=== PATIENT | male | born 1975 | race Caucasian/White ===

== ENCOUNTER 2020-02-15 17:07 | Emergency (ER) | payer BC, SELFPAY ==
--- NOTE | ~2020-02-15 | CT_ITS ---
EXAMINATION: CTA chest PE protocol EXAM DATE: 02/15/2020 18:22 INDICATION: Acute onset dyspnea, left-sided chest pain. TECHNIQUE: Spiral CTA of the chest (pulmonary arteries) was performed with 100 cc Omnipaque 350 intr avenous contrast injection. Images were acquired during the pulmonary arterial phase. Coronal maxi mum intensity projection 3D-reconstructions were created by the technologist on dedicated workstation . Axial, coronal and sagittal reformatted images were reviewed. The dose-length product (DLP) for t his examination was 318.75 mGy-cm. The exposure was tailored according to patient size (auto mA exp osure control), and iterative reconstruction (ASIR) was used as additional dose reduction technique. Correlation is made to chest x-ray same date. FINDINGS: There are no pulmonary emboli in the 1st through 3rd order (central and interlobar) pulmon kishore arteries. Some loss of attenuation in the segmental pulmonary arteries due to respiratory motion , but no intraluminal filling defects suspected. No thoracic aortic dissection. Moderate amount of scattered tree-in-bud pattern reticular nodular airspace disease, pattern suggesti ng endobronchial spread of infectious process. Differential diagnosis includes aspiration, TB/KLAUS an d chronic air space processes such as hypersensitivity pneumonitis. There is right upper lobe bronc hiectasis, linear opacities radiating from the hilum to the periphery with volume loss, appearance is consistent with scarring from prior infectious process. There are no pleural or pericardial effusions. Tracheobronchial tree is patent. There is no media stinal, hilar or axillary lymphadenopathy. There is no pneumothorax. Heart normal in size. No e vidence of coronary arterial calcification. Upper abdomen is unremarkable. There is thoracic spond ylosis without osteoblastic or osteolytic lesions identified. IMPRESSION: 1. No pulmonary emboli. 2. Moderate amount of bilateral tree-in-bud pattern airspace disease. Differential considerations in clude TB/KLAUS, hypersensitivity pneumonitis. 3. Chronic right upper lobe scarring and bronchiectasis. Reviewed, dictated and finalized at location A. IMPRESSION: 1. No pulmonary emboli. 2. Moderate amount of bilateral tree-in-bud pattern airspace disease. Differen tial considerations include TB/KLAUS, hypersensitivity pneumonitis. 3. Chronic right upper lobe scarring and bronchiectasis.
--- NOTE | ~2020-02-15 | XR_ITS ---
EXAMINATION: XR chest 2V DATE: 02/15/2020 17:24 INDICATION: Left-sided chest pain TECHNIQUE: PA and lateral views of the chest are obtained. COMPARISON: 05/21/2018 FINDINGS: The lungs are free of acute opacities. Volume loss and chronic opacities of the right upper lobe are consistent with sequela of prior pneumonia. There is no pleural effusion or pneumothorax. T he cardiomediastinal silhouette is normal. There is mild thoracic spondylosis. IMPRESSION: 1. No acute cardiopulmonary abnormality. Reviewed, dictated and finalized at location A.
--- NOTE | 2020-02-15 17:08 | ECG_ITS ---
Measurements Intervals [place] Rate: 79 P: 73 TN: 164 QRS: 93 QRSD: 109 T: 32 QT: 371 QTc: 426 Interpretive Statements SINUS RHYTHM BORDERLINE ST-T WAVE ABNORMALITY- INFERIOR LEADS BORDERLINE ECG Electronically Signed On 02-15-2020 19:21:36 CDT by Chuy Trujillo D.O.
[2020-02-15 17:12] VITALS: BP 141/80; PULSE 98; RESP 24; TEMP 36.1; O2SAT 100
--- NOTE | 2020-02-15 17:18 | PC.NURSE ---
Patient to xray at this time
[2020-02-15 17:26] LABS: Basophils Absolute Auto 0.1 K/mm3 (0.0-0.1); Basophils Percent Auto 0.8 % (0.2-1.2); Eosinophils Absolute Auto 0.2 K/mm3 (0-0.3); Eosinophils Percent Auto 3.2 % (0-4.4); Immature Granulocyte Absolute 0.01 K/mm3 (0.00-0.031); Immature Granulocyte Percent A 0.1 % (0-0.5); Lymphocytes Absolute Auto 2.36 K/mm3 (0.9-3.2); Lymphocytes Percent Auto 33.1 % (18.3-44.2); Mean Corpuscular HGB Conc 32.6 g/dl (32-36); Mean Corpuscular Hemoglobin 29.9 pg (26-34); Mean Corpuscular Volume 91.8 fl (80-100); Mean Platelet Volume 10.2 fl (7.4-10.4); Monocytes Percent Auto 13.5 % (2.6-8.5); Neutrophils Absolute Auto 3.5 K/mm3 (1.3-6.7); Neutrophils Percent Auto 49.3 % (45.5-73.1); Platelet Count Result 238 k/mm3 (150-375); Red Blood Count 5.01 M/mm3 (4.6-6.20); Red Cell Distribution Width 12.9 % (11.5-14.5); White Blood Count 7.1 K/mm3 (4.5-10.0)
[2020-02-15 17:29] VITALS: O2SAT 100
--- NOTE | 2020-02-15 17:34 | ED.CHESTPAIN ---
HPI - Chest Pain General Chief Complaint: Chest Pain Stated Complaint: chest pain Time Seen by Provider: 02/15/20 17:34 Source: patient and family Mode of arrival: wheelchair Limitations: no limitations History of Present Illness HPI narrative: Patient is a 45-year-old male who presents for evaluation of acute onset left-sided sharp chest pain. Patient states he was driving home from work when he began to have a chest discomfort on the left side of his chest. Described as sharp, stabbing in nature. He has had some associated shortness of breath, mostly pain with inspiration or pain with moving. He denies any recent heavy lifting. Patient does have a history of sarcoidosis, has a history of right-sided pneumothorax, VATS procedure done at [facility] in 2019. Patient follows with the cad specialist at [facility]. Patient denies recent car or air travel. He is a non-smoker. No leg swelling or leg pain. Related Data Allergies Allergy/AdvReac Type Severity Reaction Status Date / Time No Known Allergies Allergy Verified 02/15/20 17:29 Review of Systems Review of Systems: Narrative: CONSTITUTIONAL: Denies fever, chills, or sweats. EYES: Denies visual changes, redness, or discharge. ENT: Denies rhinorrhea, congestion, sore throat, or otalgia. CARDIOVASCULAR: Reports left-sided chest pain, denies palpitations or edema RESPIRATORY: Denies cough, reports shortness of breath GASTROINTESTINAL: Denies abdominal pain, nausea, vomiting, or diarrhea. GENITOURINARY: Denies dysuria or hematuria. SKIN: Denies rash or itching. MUSCULOSKELETAL: Denies back pain, joint pain, or myalgia. NEUROLOGIC: Denies headache, numbness, or weakness. 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 EYES: PERRLA and EOMI. ENT: Nares clear, no rhinorrhea or epistaxis. Mucous membranes moist. NECK: Supple. CHEST: No respiratory distress, mild tachypnea, bilateral breath sounds present, pain with inspiration over the left chest, reproducible left lateral chest wall tenderness, tender along the midclavicular line to the mid axillary line at T9, T10, T11, T12 HEART: Regular rate, sinus rhythm ABDOMEN:Non distended, non tender EXTREMITIES: Normal range of motion. No edema. SKIN: Warm, dry, no rash. NEURO:No focal deficits. Alert and oriented x3 Course Vital Signs Vital signs: Vital Signs Temperature 36.1 C L 02/15/20 17:12 Pulse Rate 98 02/15/20 17:12 Respiratory Rate 24 H 02/15/20 17:12 Blood Pressure 141/80 H 02/15/20 17:12 Pulse Oximetry 100 02/15/20 17:12 Temperature 36.1 C L 02/15/20 17:12 Pulse Rate 70 02/15/20 20:55 Respiratory Rate 18 02/15/20 20:55 Blood Pressure 114/75 02/15/20 20:55 Pulse Oximetry 100 02/15/20 20:55 MDM - Chest Pain MDM Narrative Medical decision making narrative: Presenting for evaluation of acute onset left-sided chest wall pain. At the time of assessment, patient is hyperventilating, otherwise ABCs are intact and vital signs are stable. Pain is reproducible. Given this, I do not suspect anginal type symptoms. Given history of pneumothorax, do want to rule out any acute cardiopulmonary abnormalities, thus imaging obtained and is negative for PE. Patient does have air entry both appearance which can be consistent with sarcoidosis after speaking with radiologist. Clinically the patient does not have symptoms that are consistent for TB or KLAUS. Patient chest p
[2020-02-15 17:39] LABS: Anion Gap 12 mmol/L (8-16); Blood Urea Nitrogen 15 mg/dL (9-20); Calcium 10.4 mg/dL (8.4-10.2); Carbon Dioxide 29 mmol/L (22-30); Chloride 100 mmol/L (98-107); Estimated CRCL calculation 88 ml/min; Estimated Glomerular Filt Rate > 60; Glucose 134 mg/dL (75-110); Potassium 3.6 mmol/L (3.4-5.0); Sodium 141 mmol/L (137-145)
[2020-02-15] MEDS: MORPHINE SULFATE (*CRX) 4 MG/ML INJ IV PUSH (17:42)
[2020-02-15] MEDS: ASPIRIN 81 MG CHEWABLE TABLET 324 MG PO (17:42)
[2020-02-15] MEDS: SODIUM CHLORIDE 0.9% IV 1,000 ML 999 ML IV CONT (17:43)
[2020-02-15] MEDS: ONDANSETRON INJ 4 MG/2 ML VIAL IV PUSH (17:43)
[2020-02-15 17:51] LABS: Troponin I < 0.012 ng/mL (0.000-0.034)
[2020-02-15 17:55] LABS: Alveolar/Arterial O2 Gradient 2.8 mmHg; Base Excess ABG 2.1 mEq/l (+/-2.0); Carboxyhemoglobin 0.9 % THb (0-2.0); Fractional Inspired Oxygen 21 %; HCO3 ABG 19.2 mEq/l (22.0-26.0); Methemoglobin ABG 0.2 %THb (0-1.5); Oxygen Content ABG 20.5 %vol (16.0-22.0); Oxygen Saturation ABG 99.2 % (95.0-100.0); Oxyhemoglobin 97.7 % THb (90.0-100.0); PO2 ABG 127.2 mmHg (80.0-100.0); PO2 FiO2 Ratio Arterial Blood 6.06 %; Reduced Hemoglobin 1.2 %THb (0-5.0); Total Hemoglobin 14.8 g/dL (12.0-18.0)
[2020-02-15 17:56] LABS: pH ABG 7.684 (7.350-7.450)
[2020-02-15 17:57] LABS: Device ROOM AIR; Modified Allen's Test Pass; PCO2 ABG 16.5 mmHg (35.0-45.0); Site Drawn RIGHT RADIAL
[2020-02-15 18:15] LABS: Prothrombin Time 13.2 Seconds (11.1-14.7)
[2020-02-15 18:17] LABS: Partial Thromboplastin Time 34.8 SECONDS (22.3-36.8)
[2020-02-15 18:19] LABS: D Dimer 0.48 ug/mL (<0.48)
[2020-02-15 18:28] LABS: NT Pro B Type Natriuretic Pept 170 PG/ML (5-100)
[2020-02-15] MEDS: KETOROLAC 15 MG/ML VIAL (*BKC) IV PUSH (18:30)
[2020-02-15 18:59] VITALS: BP 112/74; PULSE 74; RESP 18; O2SAT 100
[2020-02-15 20:39] LABS: Troponin I < 0.012 ng/mL (0.000-0.034)
[2020-02-15 20:55] VITALS: BP 114/75; PULSE 70; RESP 18; O2SAT 100
[2020-02-15 21:40] VITALS: BP 120/74; PULSE 80; RESP 18; TEMP 36.7; O2SAT 99
== END 2020-02-15 21:41 | disposition home or self-care (01) ==
PROVIDERS: Emergency Medicine; Emergency Provider Emergency Medicine
DX: R07.89 Other chest pain (principal); M62.838 Other muscle spasm
CPT/HCPCS: 36415; 36600; 71046; 71275; 80048; 82375; 82805; 83050; 83880; 84484; 85025; 85380; 85610; 85730; 93005; 96361; 96365; 96375; 99284; A9270; J0131; J1885; J2270; J2405; J7030; Q9967

== ENCOUNTER 2020-12-09 10:11 | Emergency (ER) | payer BC, SELFPAY ==
[2020-12-09 10:21] VITALS: BP 111/72; PULSE 92; RESP 16; TEMP 36.1; O2SAT 100
--- NOTE | 2020-12-09 10:27 | ED.URI ---
HPI - URI/Sore Throat General Chief Complaint: Upper Respiratory Infection Stated Complaint: sinus infection History of Present Illness HPI Narrative: This is a 45 year old male that has been having symptoms since Friday patient was swabbed on for Covid patient is complaining of nasal drainage coughing sinus pressure pain. 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 EYES: Denies visual changes, redness, or discharge. ENT: Reports rhinorrhea, congestion, sore throat, or otalgia. CARDIOVASCULAR:Denies chest pain, palpitations, or edema. RESPIRATORY: Reports cough or dyspnea. GASTROINTESTINAL: Denies abdominal pain, nausea, vomiting, or diarrhea. GENITOURINARY: Denies dysuria or hematuria. SKIN:[Denies rash or itching. MUSCULOSKELETAL:Denies back pain, joint pain, or myalgia. NEUROLOGIC: Denies headache, numbness, or weakness. PSYCHIATRIC:Denies anxiety or depression PMFSH Past Medical History Medical History (Updated 12/09/20 @ 11:08 by Enrique Bloom NP) Pneumothorax Sarcoidosis Social History Social History (Updated 02/15/20 @ 17:38 by Gloria Cooper MD) Smoking status: Never smoker Alcohol intake: never Substance use: never Additional occupation/education comments: Principal Gender identity (if verbalized by the patient): Male Comments At time as signature, I have reviewed and agree with nursing past medical, social, surgical and family history. Please see nursing chart for further information. There is no relevant family history pertinent to the presenting complaint. Exam Narrative: GENERAL:Well-appearing, well-nourished, and in no acute distress. HEAD:Normocephalic, atraumatic. EYES: PERRLA ENT: Nares clear, mild clear rhinorrhea Mucous membranes moist. NECK: Supple. CHEST: Clear to auscultation. No respiratory distress. HEART: Regular rate and rhythm. ABDOMEN: Soft, nontender, nondistended EXTREMITIES: Normal range of motion. No edema. SKIN: Warm, dry, no rash. NEURO: No focal deficits. Alert and oriented x3. Course Course Emergency Course: Awaiting influenza and Covid test pending Vital Signs Vital signs: Vital Signs Temperature 97 F L 12/09/20 10:21 Pulse Rate 92 12/09/20 10:21 Respiratory Rate 16 12/09/20 10:21 Blood Pressure 111/72 12/09/20 10:21 Pulse Oximetry 100 12/09/20 10:21 Temperature 97 F L 12/09/20 10:21 Pulse Rate 92 12/09/20 10:21 Respiratory Rate 16 12/09/20 10:21 Blood Pressure 111/72 12/09/20 10:21 Pulse Oximetry 100 12/09/20 10:21 MDM - URI/Sore Throat MDM Narrative Medical decision making narrative: Negative covid test Negative Influenza test Differential Diagnosis Differential diagnosis: Likely upper respiratory infection, otitis media, sinusitis, viral infection, influenza and pharyngitis Lab Data Labs: Lab Results 12/09/20 Range/Units 10:46 POC SARS CoV-2 Ag Negative (Negative) Influenza A Screen Negative Reference Range: Negative Influenza B Screen Negative Reference Range: Negative Discharge Plan Discharge Clinical Impression: Viral infection Upper respiratory infection Qualifiers: URI type: unspecified URI Qualified Code(s): J06.9 - Acute upper respiratory infection, unspecified Patient Disposition: Home, Self-Care Condition: Stable Instructions: Antibiotic Form, Upper Respiratory Infection (ED), Viral Syndrome (ED) Additional Instructions: Viral illness may last between 7-12days; antibiotic is NOT recommend
[2020-12-11 17:31] LABS: SARS-CoV-2 RNA PCR Negative
== END 2020-12-09 11:16 | disposition home or self-care (01) ==
PROVIDERS: Emergency Provider Nurse Practitioner Family
DX: B34.9 Viral infection, unspecified (principal); J06.9 Acute upper respiratory infection, unspecified; Z20.822 Contact with and (suspected) exposure to COVID-19; D86.9 Sarcoidosis, unspecified
CPT/HCPCS: 87426; 87804; 99213; C9803; G0463; U0003; U0005

== ENCOUNTER → 2022-01-16 10:27 | Outpatient (CLI) | payer BC, OTHER, SELFPAY ==
--- NOTE | ~2022-01-16 | XR_ITS ---
EXAMINATION: XR ribs RT 2V w CXR 2V INDICATION: Localized swelling, mass, and lump of the chest TECHNIQUE: PA and lateral views of the chest and 3 views of the right ribs were obtained. COMPARISON: 02/15/2020 FINDINGS: There is chronic scarring in the right upper lobe. The lungs are free of acute opacities. N o pleural effusion or pneumothorax. There is mild thoracic spondylosis. The cardiomediastinal silhoue tte is normal. No displaced rib fracture is identified. IMPRESSION: 1. No acute cardiopulmonary abnormality or evidence of displaced rib fracture. Reviewed, dictated and finalized at location B.
== END ==
PROVIDERS: PCP Nurse Practitioner Family; Visit Provider Nurse Practitioner Family
DX: R22.2 Localized swelling, mass and lump, trunk (principal); D86.9 Sarcoidosis, unspecified
CPT/HCPCS: 71046; 71100

== ENCOUNTER 2024-09-23 12:34 | Outpatient (CLI) | payer BC, OTHER, SELFPAY ==
--- NOTE | ~2024-09-23 | US_ITS ---
EXAMINATION: US soft tissue head and neck DATE: 09/23/2024 12:48 INDICATION: Palpable area at the right neck near the angle of the mandible TECHNIQUE: Multiple grayscale and Doppler ultrasound images of the retromandibular region of concern were obtained. COMPARISON: None FINDINGS: There are multiple very hypoechoic lesions within the echogenic right parotid gland. These include a 1.7 x 0.7 x 1.5 cm very hypoechoic nodule which demonstrates a central echogenic region such as typic ally seen within the echogenic hilum of a lymph node. There are a few additional more homogeneously v nancy hypoechoic ovoid nodules in axillary is measuring 10 x 5 mm. IMPRESSION: 1. Several very hypoechoic lesions within the right parotid gland which could represent enlarged lymp h nodes or primary parotid neoplasms which could be either benign or malignant. Based on the appearan ce of one of the nodules would favor the former. The enlarged lymph nodes could be either reactive, m etastatic or due to lymphoma. Consider ultrasound-guided biopsy. Reviewed, dictated and finalized at location A. IMPRESSION: 1. Several very hypoechoic lesions within the right parotid gland which could r epresent enlarged lymph nodes or primary parotid neoplasms which could be eithe r benign or malignant. Based on the appearance of one of the nodules would favo r the former. The enlarged lymph nodes could be either reactive, metastatic or due to lymphoma. Consider ultrasound-guided biopsy.
== END 2024-09-23 12:35 | disposition home or self-care (01) ==
PROVIDERS: PCP Nurse Practitioner Family; Visit Provider Family Medicine
DX: D37.030 Neoplasm of uncertain behavior of the parotid salivary glands (principal); R59.9 Enlarged lymph nodes, unspecified
CPT/HCPCS: 76536